=== PATIENT | male | born 1980 | race African-American/Black ===

== ENCOUNTER 2019-04-04 21:23 | Emergency (ER) | payer MEDICAID ==
[~2019-04-04] VITALS: Ht 182.9 cm; Wt 91.0 kg
[2019-04-05] MEDS ORDERED: KETOROLAC 30MG/ML VIAL IM ONE (03:45)
[2019-04-05 06:09] VITALS: BP 179/99
== END 2019-04-05 06:10 | disposition left against medical advice (07) ==
LOC: ER 21:23 → 8WST 04-05 01:30 → UNDOADMIN 04-05 01:30 → ER 04-05 06:10
DX: S16.1XXA Strain of muscle, fascia and tendon at neck level, initial encounter (principal); R07.89 Other chest pain; R94.31 Abnormal electrocardiogram [ECG] [EKG]; I48.91 Unspecified atrial fibrillation; J45.909 Unspecified asthma, uncomplicated; F17.210 Nicotine dependence, cigarettes, uncomplicated; F12.10 Cannabis abuse, uncomplicated; V43.62XA Car passenger injured in collision with other type car in traffic accident, initial encounter; Y93.89 Activity, other specified; Y92.488 Other paved roadways as the place of occurrence of the external cause
CPT/HCPCS: 70450; 71046; 72125; 93005; 96372; 99284; J1885; Z7610